=== PATIENT | female | born 1990 | race Caucasian/White ===

== ENCOUNTER 2017-01-15 08:24 | Emergency (ER) | payer MEDICAID ==
[2017-01-15] MEDS ORDERED: DIPHENHYDRAMINE HCL 50 MG/ML VIAL IV ONE (09:03)
[2017-01-15] MEDS ORDERED: FAMOTIDINE INJ/PF 20 MG/2 ML SDV IV ONE (09:03)
[2017-01-15] MEDS ORDERED: METHYLPREDNISOLONE INJ 125 MG/2 ML SDV IV ONE (09:03)
[2017-01-15] MEDS ORDERED: PENICILLIN V POTASSIUM 500 MG TABLET PO ONE (09:06)
--- NOTE | 2017-01-15 09:06 | ER Document Report ---
ED General - General Chief Complaint: Allergic Reaction Stated Complaint: POSSIBLE ALLERGIC REACTION Mode of Arrival: Ambulatory Information source: Patient Notes: 26-year-old female presents with complaints of allergic reaction. Patient notes that she was started on clindamycin and Tylenol with Codeine. After taking medication patient noted swelling of the upper lips and around her eyes with large hives on her hips and abdomen. Patient notes symptoms have been ongoing since yesterday. Patient took Benadryl last night and this morning. TRAVEL OUTSIDE OF THE [place] IN LAST 30 DAYS: No - HPI Onset: Yesterday Onset/Duration: Persistent Quality of pain: No pain Severity: Mild Pain Level: Denies Associated symptoms: Other Exacerbated by: Denies Relieved by: Denies Similar symptoms previously: No Recently seen / treated by doctor: No - Related Data Allergies/Adverse Reactions: No Known Allergies Allergy (Unverified 01/15/17 08:37) Past Medical History - Social History Smoking Status: Never Smoker Cigarette use (# per day): No Chew tobacco use (# tins/day): No Smoking Education Provided: No Frequency of alcohol use: None Drug Abuse: None Family History: Reviewed & Not Pertinent Patient has suicidal ideation: No Patient has homicidal ideation: No Renal/ Medical History: Denies: Hx Peritoneal Dialysis Review of Systems - Review of Systems Notes: REVIEW OF SYSTEMS: CONSTITUTIONAL : Denies fever, chills, or sweats. Denies recent illness. EENT: Admits to lip swelling denies any difficulty swallowing admits left ear pain CARDIOVASCULAR: Denies chest pain. Denies palpitations or racing or irregular heart beat. Denies ankle edema. RESPIRATORY: Denies cough, cold, or chest congestion. Denies shortness of breath, difficulty breathing, or wheezing. GASTROINTESTINAL: Denies abdominal pain or distention. Denies nausea, vomiting , or diarrhea. Denies blood in vomitus, stools, or per rectum. Denies black, tarry stools. Denies constipation. GENITOURINARY: Denies difficulty urinating, painful urination, burning, frequency, blood in urine, or discharge. FEMALE GENITOURINARY: Denies vaginal bleeding, heavy or abnormal periods, irregular periods. Denies vaginal discharge or odor. MUSCULOSKELETAL: Denies back or neck pain or stiffness. Denies joint pain or swelling. SKIN: Admits to hives HEMATOLOGIC : Denies easy bruising or bleeding. LYMPHATIC: Denies swollen, enlarged glands. NEUROLOGICAL: Denies confusion or altered mental status. Denies passing out or loss of consciousness. Denies dizziness or lightheadedness. Denies headache. Denies weakness or paralysis or loss of use of either side. Denies problems with gait or speech. Denies sensory loss, numbness, or tingling. Denies seizures. PSYCHIATRIC: Denies anxiety or stress. Denies depression, suicidal ideation, or homicidal ideation. ALL OTHER SYSTEMS REVIEWED AND NEGATIVE. Dictation was performed using Live[employer] voice recognition software PHYSICAL EXAMINATION: GENERAL: Well-appearing, well-nourished and in no acute distress. HEAD: Atraumatic, normocephalic. EYES: Pupils equal round and reactive to light, extraocular movements intact, conjunctiva are normal. Bilateral orbital edema ENT: Left otitis media, bilateral upper lip swelling NECK: Normal range of motion, supple without lymphadenopathy LUNGS: Breath sounds clear to auscultation bilaterally and equal. No wheezes rales or rhonchi. HEART: Regular rate and rhythm without murmurs ABDOMEN: Soft, nontender, nondistended abdomen. No guarding, no rebound. No masses appreciated. Female : deferred Musculoskeletal: Normal range of motion, no pitting or edema. No cyanosis. NEUROLOGICAL: Cranial nerves grossly intact. Normal speech, normal gait. Normal sensory, motor exams PSYCH: Normal mood, normal affect. SKIN: Hives noted on abdomen flank Physical Exam - Vital signs Vitals: Temp Pulse Resp BP Pulse Ox 97.5 F 85 20 128/90 H 99 01/15/17 08:32 01/15/17 08:32 01/15/17 08:32 01/15/17 08:32 01/15/17 08:32 Course - Re-evaluation Re-evalutation: 01/15/17 09:05 Patient has obvious allergic reaction, she'll be switched to penicillin and will be treated for her allergy but otherwise has no respiratory distress and no life-threatening issues at this time given that symptoms have been ongoing for 2 days I do not expect this to worsen 01/15/17 10:52 pts symptoms have since improved significantly. Will dc home with penicillin , pt happy with this plan. After performing a Medical Screening Examination, I estimate there is LOW risk for AIRWAY COMPROMISE, ANAPHYLAXIS, CELLULITIS, EPIGLOTTIS, or NECROTIZING FASCIITIS, thus I consider the discharge disposition reasonable. Also, there is no evidence or peritonitis, sepsis, or toxicity. The patient and I have discussed the diagnosis and risks, and we agree with discharging home with close follow-up with the understanding that symptoms and presentations can change. We also discussed returning to the Emergency Department immediately if new or worsening symptoms occur. We have discussed the symptoms which are most concerning (e.g., difficulty breathing or swallowing, fever, changing or worsening pain) that necessitate immediate return. 01/15/17 10:53 - Vital Signs Vital signs: Temp Pulse Resp BP Pulse Ox 97.5 F 85 20 122/87 H 100 01/15/17 08:32 01/15/17 08:32 01/15/17 10:01 01/15/17 10:01 01/15/17 10:01 Discharge - Discharge Clinical Impression: Acute allergic reaction Qualifiers: Encounter type: initial encounter Qualified Code(s): T78.40XA - Allergy, unspecified, initial encounter Otitis media Qualifiers: Otitis media type: suppurative Laterality: left Chronicity: acute Recurrence: not specified as recurrent Spontaneous tympanic membrane rupture: without spontaneous rupture Qualified Code(s): H66.002 - Acute suppurative otitis media without spontaneous rupture of ear drum, left ear Condition: Stable Disposition: HOME, SELF-CARE Instructions: Acute Allergic Reaction ([facility]) Prescriptions: Diphenhydramine HCl [Benadryl 50 mg Capsule] 1 cap PO Q6 PRN #20 capsule PRN Reason: Epinephrine [Epipen 2-Nhan] 0.3 mg IM ASDIR PRN #1 packet PRN Reason: Famotidine [Pepcid 20 mg Tablet] 20 mg PO DAILY #5 tablet Naproxen 500 mg PO BID #20 tablet Penicillin V Potassium [Penicillin Vk 500 mg Tablet] 500 mg PO Q6 #40 tablet Prednisone 60 mg PO DAILY 5 Days Referrals: [facility] [Provider Group] - Follow up as needed
[2017-01-15 10:29] VITALS: BP 122/87
== END 2017-01-15 11:02 | disposition home or self-care (01) ==
LOC: ER 08:24
DX: T78.40XA Allergy, unspecified, initial encounter (principal); H66.002 Acute suppurative otitis media without spontaneous rupture of ear drum, left ear; R22.0 Localized swelling, mass and lump, head; L50.9 Urticaria, unspecified
CPT/HCPCS: 99283; 96374; 96375; J1200; J2930; S0028